=== PATIENT | male | born 1970 | race Caucasian/White ===

== ENCOUNTER 2017-12-04 21:39 | Emergency (ER) | payer OTHER ==
[~2017-12-04] VITALS: Ht 188 cm; Wt 117.9 kg
--- OUTSIDE RECORDS SUMMARY | ~2017-12-04 | XMS | Encounter Summary ---
Demographics + + + | Address | [address] | | | [place] [address] | + + + | Home Phone | | + + + | Preferred Language | Unknown | + + + | Marital Status | | + + + | Nondenominational Affiliation | Unknown | + + + | Race | White | + + + | Ethnic Group | Not or | + + + Author + + + | Author | [facility] | + + + | Organization | [facility] | + + + | Address | Unknown | + + + | Phone | Unavailable | + + + Support + + + + + | Name | Relationship | Address | Phone | + + + + + | Toribio Taylor | ECON | | | | [address] | | [place] | | | | | [address] | | + + + + + Care Team Providers + +------+-------+ | Care Manager Search Engine Name | Role | Phone | + +------+-------+ | Donato Villegas MD | PCP | tel | + +------+-------+ Encounter Details +--------+ + + + + | Date | Type | Department | Care Team | Description | +--------+ + + + + | 09/15/ | Document-Sc | UNKNOWN DEPARTMENT | Unknown . | | | 2017 | anned | [address] [facility] | | | | | | [facility] | | | | | | [place], [place] | | | | | | [address] | | | +--------+ + + + + Social History + +-------+ +--------+------+ | Tobacco Use | Types | Packs/Day | Years | Date | | | | | Used | | + +-------+ +--------+------+ | Never Smoker | | | | | + +-------+ +--------+------+ + +---+---+---+ | Smokeless Tobacco: | | | | | Never Used | | | | + +---+---+---+ + + + | Sex Assigned at | Date Recorded | | | | + + + | Not on file | | + + + as of this encounter Plan of Treatment +--------+---------+ + + + | Date | Type | Specialty | Care Team | Description | +--------+---------+ + + + | 03/15/ | Office | Neurology | Per Harrison, | | | 2017 | Visit | | [address] | | | | | | [address] | | | | | | [place] | | | | | | [address] | | | | | | [phone] | | | | | | | | +--------+---------+ + + + as of this encounter Results ORDERS OTHER (09/15/2017)in this encounter Visit Diagnoses Not on filein this encounter"
--- OUTSIDE RECORDS SUMMARY | ~2017-12-04 | XMS | Clinical Summary ---
Demographics + + + | Address | [address] | | | [place] [address] | + + + | Home Phone | | + + + | Preferred Language | Unknown | + + + | Marital Status | | + + + | Yarsanism Affiliation | Unknown | + + + | Race | White | + + + | Ethnic Group | Not or | + + + Author + + + | Author | [facility] | + + + | Organization | [facility] | + + + | Address | Unknown | + + + | Phone | Unavailable | + + + Support + + + + + | Name | Relationship | Address | Phone | + + + + + | Toribio Taylor | ECON | [address] | | | [address] | | [place] | | | | | [address] | | + + + + + Care Team Providers + +------+-------+ | Care Logistics Tech Name | Role | Phone | + +------+-------+ | Donato Villegas MD | PP | tel | + +------+-------+ Source Comments PO is fully live on both [facility] and [facility] InPatient.[facility] Allergies No Known Allergies Current Medications + + +--------+---------+------+------+-------+ | Prescription | Sig. | Disp. | Refills | Star | End | Statu | | | | | | t | Date | s | | | | | | Date | | | + + +--------+---------+------+------+-------+ | ERGOCALCIFEROL, | Take 50,000 Units by | | | | | Activ | | VITAMIN D2, (VITAMIN | mouth every seven | | | | | e | | D ORAL) | days. | | | | | | + + +--------+---------+------+------+-------+ | Pramipexole | Take 2 tablets by | 60 | 2 | 04/ | | Activ | | (MIRAPEX ER) 0.375 | mouth once daily. | tablet | | 07/05 | | e | | mg oral tablet | Indications: | | | 17 | | | | extended release 24 | Idiopathic | | | | | | | hrIndications: | Parkinsonism | | | | | | | Idiopathic | | | | | | | | Parkinsonism | | | | | | | + + +--------+---------+------+------+-------+ | metoprolol | Take 25 mg by mouth | | | | | Activ | | succinate 25 mg oral | once daily. | | | | | e | | tablet extended | | | | | | | | release 24 hr | | | | | | | + + +--------+---------+------+------+-------+ | entacapone 200 mg | Take 1 tablet by | 90 | 11 | 10/ | | Activ | | oral | mouth three times | tablet | | 02/02 | | e | | tabletIndications: | daily. Always | | | 17 | | | | Idiopathic | administer in | | | | | | | Parkinsonism | association with | | | | | | | | levodopa/carbidopa | | | | | | | | (SINEMET). | | | | | | | | Indications: | | | | | | | | Idiopathic | | | | | | | | Parkinsonism | | | | | | + + +--------+---------+------+------+-------+ | carbidopa-levodopa | Take 2 tablets by | 540 | 3 | 10/2 | | Activ | | (SINEMET) 25-100 mg | mouth three times | tablet | | 3/20 | | e | | oral tablet | daily. | | | 17 | | | + + +--------+---------+------+------+-------+ | rasagiline 1 mg | Take 1 tablet by | 90 | 3 | 10/2 | | Activ | | oral | mouth once daily. | tablet | | 3/20 | | e | | tabletIndications: | Indications: | | | 17 | | | | Idiopathic | Idiopathic | | | | | | | Parkinsonism | Parkinsonism | | | | | | + + +--------+---------+------+------+-------+ | trihexyphenidyl 2 | Take 1 tablet by | 90 | 11 | 11/2 | | Activ | | mg oral | mouth three times | tablet | | 1/20 | | e | | tabletIndications: | daily Indications: | | | 17 | | | | Idiopathic | Idiopathic | | | | | | | Parkinsonism | Parkinsonism | | | | | | + + +--------+---------+------+------+-------+ Active Problems + + + | Problem | Noted Date | + + + | Parkinson's disease (HCC) | 07/03/2014 | + + + Encounters +--------+ + + + + | Date | Type | Specialty | Care Team | Description | +--------+ + + + + | 10/06/ | Telephone | | Per Harrison, | Refill Request | | 2017 | | | MD | (Trihexyphenidyl 2MG | | | | | | tab) | +--------+ + + + + | 09/15/ | Document-Sc | | Ventura, Javier | | | 2016 | anned | | | | +--------+ + + + + | 09/15/ | Document-Sc | | Unknown | | | 2016 | anned | | | | +--------+ + + + + | 09/07/ | Office | | Per Harrison, | Parkinson's disease | | 2016 | Visit | | MD | (HCC) (Primary Dx) | +--------+ + + + + from Last 3 Months Social History + +-------+ +--------+------+ | Tobacco [...] on file | | + + + Last Filed Vital Signs + + + + | Vital Sign | Reading | Time Taken | + + + + | Blood Pressure | 123/81 | 09/07/2017 2:34 PM PDT | + + + + | Pulse | 92 | 09/07/2017 2:34 PM PDT | + + + + | Temperature | - | - | + + + + | Respiratory Rate | - | - | + + + + | Oxygen Saturation | - | - | + + + + | Inhaled Oxygen | - | - | | Concentration | | | + + + + | Weight | 127.9 kg (282 lb) | 09/07/2017 2:33 PM PDT | + + + + | Height | 182.9 cm (6') | 03/03/2017 12:59 PM PDT | + + + + | Body Mass Index | 38.25 | 09/07/2017 2:33 PM PDT | + + + + Plan of Treatment +--------+---------+ + + + | Date | Type | Specialty | Care Team | Description | +--------+---------+ + + + | 03/15/ | Office | | Per Harrison, | | | 2018 | Visit | | [address] | | | | | | [address] | | | | | | [place], [place] | | | | | | [address] | | | | | | [phone] | | | | | | | | +--------+---------+ + + + + + + + + | Health Maintenance | Due Date | Last Done | Comments | + + + + + | INFLUENZA VACCINE | | | | | (FLU SHOT) | 7 | | | + + + + + Results ORDERS OTHER (09/15/2017)Only the most recent of 2 results within the time period is includ ed.from Last 3 Months"
--- OUTSIDE RECORDS SUMMARY | ~2017-12-04 | XMS | Encounter Summary ---
Demographics + + + | Address | [address] | | | [place] [address] | + + + | Home Phone | | + + + | Preferred Language | Unknown | + + + | Marital Status | | + + + | Zoroastrian Affiliation | Unknown | + + + | Race | White | + + + | Ethnic Group | Not or | + + + Author + + + | Author | [facility] | + + + | Organization | [facility] | + + + | Address | Unknown | + + + | Phone | Unavailable | + + + Support + + + + + | Name | Relationship | Address | Phone | + + + + + | Toribio Taylor | ECON | | | | [address] | | [place] | | | | | [address] | | + + + + + Care Team Providers + +------+-------+ | Care Heating Worker Name | Role | Phone | + +------+-------+ | Donato Villegas MD | PCP | tel | + +------+-------+ Reason for Visit Office Visit - E/M Services (Routine) +--------+--------+ + + + + | Status | Reason | Specialty | Diagnoses / | Referred By | Referred To | | | | | Procedures | Contact | Contact | +--------+--------+ + + + + | Closed | | Neurology | Procedures | [facility] | [facility] | | | | | [place] EST | Epic Dept | Disorder Chh | | | | | PATIENT | | [address] | | | | [address] | | [address] | | | | | | | Mail Code: | | | | | | | [facility] | | | | | | | for Health | | | | | | | and Healing, | | | | | | | 8th floor | | | | | | | [place], [place] | | | | | | | [address] | | | | | | | Phone: | | | | | | | [phone] | | | | | | | Fax: | | | | | | | [phone] | +--------+--------+ + + + + Encounter Details +--------+---------+ + + + | Date | Type | Department | Care Team | Description | +--------+---------+ + + + | 09/07/ | Office | Neurology at | Per Harrison, | Parkinson's disease | | 2017 | Visit | [facility] & | [address] | ([facility]) (Primary Dx) | | | | Healing [address] | [address] | | | | | [facility] Mail Code: | [place], [place] | | | | | [address] | [address] | | | | | Health and Healing, | [phone] | | | | | 8th floor [place], | | | | | | [place] [address] | | | | | | [phone] | | | +--------+---------+ + + + Social History + +-------+ [...] + + + as of this encounter Last Filed Vital Signs + + + [...] + + + + | Height | - | - | + + + + | Body Mass Index | 38.25 | 09/07/2017 2:33 PM PDT | + + + + in this encounter Instructions Patient Instructions - Per Harrison MD - 09/07/2017 2:40 PM PDT1) for depression - 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 Could also consider psychotherapy 2) Add entacapone - to the carbidopa/levodopain this encounter Progress Notes Per Harrison MD - 09/07/2017 2:40 PM PDTFormatting of this note may be different from the original. HPI: Toribio Tyalor is a 46 y.o. male here for follow up for Parkinson's Disease. H is summer was doing well. He has been having more trouble since school started. He has plant ar fasciaitis. It is getting better over time. It is slowly getting better. This is making i t harder to exercise. More depression since school started. He is still not on Mirapex for now. He was having more addictive behaviors. His PD is worse since starting. His mood is worse off the Mirapex. He is still having some managable gaps w ith the C/L. Doesn't always need to take the last dose. Pertinent neurological history: He developed tremor in 2006 which was felt to be ET. Eventually developed parkinsonian feat ures and was dx with PD in 2013 and started on Stalevo. He was referred to [facility], and it was decided to go off the entacapone due to the trials that showed it potentially increased dysk inesias if started early. Artane was added as he had primarily tremor complaints. He had bee n tried on Mirapex, but had impulsive behaviors. He had sleep referral and started on CPAP in 2015. Current Outpatient Prescriptions Medication Sig carbidopa-levodopa (SINEMET) 25-100 mg oral tablet Take 2 tablets by mouth three times daily. ERGOCALCIFEROL, VITAMIN D2, (VITAMIN D ORAL) Take 50,000 Units by mouth every seven day s. metoprolol succinate 25 mg oral tablet extended release 24 hr Take 25 mg by mouth once daily. Pramipexole (MIRAPEX ER) 0.375 mg oral tablet extended release 24 hr Take 2 tablets by mouth once daily. Indications: Idiopathic Parkinsonism rasagiline 1 mg oral tablet Take 1 tablet by mouth once daily. Indications: Idiopathic Parkinsonism trihexyphenidyl 2 mg oral tablet Take 1 tablet by mouth three times daily. No current facility-administered medications for this visit. PE: Blood pressure 123/81, pulse 92, weight 127.9 kg (282 lb). He had mild to moderate bradykinesia left greater than right with decrementally reduced amp litude and interupted frequency to finger taps, MANUELA of the hands, and pronation-supination. There was mild increase in tone left greater than right. He had mild, slow resting tremor on the left hand which was intermittent. There was a mild postural / intention component to t he tremor. He was able to arise from chair without difficulty. Gait testing revealed mildly stooped posture with decreased arm swing on the left. Imp: 1) Parkinson's Disease Gage still meets criteria for idiopathic Parkinson's Disease. This has been complicated by motor fluctuations and depression. He is having more progression of his symptoms with some motor fluctuations. Will re-add corby k entacapone to try to keep him on for a longer time period during the day.. Will stay off M irapex due to impulsive behaviors. He does feel his mood is down more lately. I do think a t herapeutic intervention would be in order. Will consider psychotherapy or antidepressants (c onsider Effexor, Wellbutrin, or Zoloft). He is not excited about either, so did not want to start either at present. Plan: 1) Continue with C/L and add entacapone 200 mg with each dose 2) Return to clinic in 6-9 months I spent 25 minutes with the patient. Greater than 50% of the time was spent counseling the patient regarding disease progression and treatment options. in this encounter Plan of Treatment +--------+---------+ + + + | Date | Type | Specialty | Care Team | Description | +--------+---------+ + + + | 03/15/ | Office | Neurology | Per Harrison, | | | 2017 | Visit | | [address] | | | | | | [facility] | | | | | | [place], [place] | | | | | | [address] | | | | | | [phone] | | | | | | | | +--------+---------+ + + + as of this encounter Visit Diagnoses + + | Diagnosis | + + | Parkinson's disease (HCC) - Primary | + + | Paralysis agitans | + +"
--- OUTSIDE RECORDS SUMMARY | ~2017-12-04 | XMS | Clinical Summary ---
Demographics + + + | Address | [address] | | | [place] [address] | + + + | Home Phone | | + + + | Preferred Language | Unknown | + + + | Marital Status | | + + + | Adventism Affiliation | Unknown | + + + | Race | White | + + + | Ethnic Group | Not or | + + + Author + + + | Author | [facility] | + + + | Organization | [facility] | + + + | Address | Unknown | + + + | Phone | Unavailable | + + + Support + + + + + | Name | Relationship | Address | Phone | + + + + + | Toribio Taylor | ECON | [address] | | | [address] | | [place] | | | | | [address] | | + + + + + Care Team Providers + +------+-------+ | Care Lead Military Analyst Name | Role | Phone | + +------+-------+ | Donato Villegas MD | PP | tel | + +------+-------+ Source Comments PO is fully live on both [facility] and [facility] InPatient.[facility] Allergies No Known Allergies Current Medications + [...] [address] | | | | | | [place], [place] | | | | | | [address] | | | | | | [phone] | | | | | | | [...]
--- OUTSIDE RECORDS SUMMARY | ~2017-12-04 | XMS | Encounter Summary ---
Demographics + + + | Address | [address] | | | [place] [address] | + + + | Home Phone | | + + + | Preferred Language | Unknown | + + + | Marital Status | | + + + | Voodoo Affiliation | Unknown | + + + | Race | White | + + + | Ethnic Group | Not or | + + + Author + + + | Author | [facility] | + + + | Organization | [facility] | + + + | Address | Unknown | + + + | Phone | Unavailable | + + + Support + + + + + | Name | Relationship | Address | Phone | + + + + + | Toribio Taylor | ECON | | | | [place] | | [place] | | | | | [address] | | + + + + + Care Team Providers + +------+-------+ | Care Director Translational Name | Role | Phone | + +------+-------+ | Donato Villegas MD | PCP | tel | + +------+-------+ Reason for Visit + + + | Reason | Comments | + + + | Refill Request | Trihexyphenidyl 2MG tab | + + + Encounter Details +--------+ + + + + | Date | Type | Department | Care Team | Description | +--------+ + + + + | 10/06/ | Telephone | Neurology at | Per Harrison, | Refill Request | | 2017 | | [facility] & | [address] | (Trihexyphenidyl 2MG | | | | Healing [address] | tab) | | | | [facility] Mail Code: | [place], [place] | | | | | [facility] | [address] | | | | | Health and Healing, | [phone] | | | | | 8th floor [place], | | | | | | [place] [address] | | | | | | [phone] | | | +--------+ + + + [...] [address] | | | | | | [place], [place] | | | | | | [address] | | | | | | [phone] | | | | | | | | +--------+---------+ + + + as of this encounter Visit Diagnoses Not on filein this encounter"
--- OUTSIDE RECORDS SUMMARY | ~2017-12-04 | XMS | Encounter Summary ---
Demographics + + + | Address | [address] | | | [place] [address] | + + + | Home Phone | | + + + | Preferred Language | Unknown | + + + | Marital Status | | + + + | Scientologist Affiliation | Unknown | + + + | Race | White | + + + | Ethnic Group | Not or | + + + Author + + + | Author | [facility] | + + + | Organization | [facility] | + + + | Address | Unknown | + + + | Phone | Unavailable | + + + Support + + + + + | Name | Relationship | Address | Phone | + + + + + | Toribio Taylor | ECON | | | | [place] | | [place] | | | | | [address] | | + + + + + Care Team Providers + +------+-------+ | Care Pre Kindergarten Teacher Name | Role | Phone | + +------+-------+ | Donato Villegas MD | PCP | tel | + +------+-------+ Encounter Details +--------+ + + + + | Date | Type | Department | Care Team | Description | +--------+ + + + + | 09/15/ | Document-Sc | Health Information | Other, Faculty | | | 2017 | anned | Services [address] | [phone] | | | | | [address] | | | | | | Road Mailcode: | | | | | | [address] | | | | | | [facility] | | | | | | Telephone, [place] | | | | | | [address] | | | | | | [phone] | | | +--------+ + + + [...] [address] | | | | | | [place] | | | | | | [address] | | | | | | [phone] | | | | | | | | +--------+---------+ + + + as of this encounter Results ORDERS OTHER (09/15/2017)in this encounter Visit Diagnoses Not on filein this encounter"
--- OUTSIDE RECORDS SUMMARY | ~2017-12-04 | XMS | Encounter Summary ---
Demographics + + + | Address | [address] | | | [place] [address] | + + + | Home Phone | | + + + | Preferred Language | Unknown | + + + | Marital Status | | + + + | Christian Affiliation | Unknown | + + + | Race | White | + + + | Ethnic Group | Not or | + + + Author + + + | Author | [facility] | + + + | Organization | [facility] | + + + | Address | Unknown | + + + | Phone | Unavailable | + + + Support + + + + + | Name | Relationship | Address | Phone | + + + + + | Toribio Taylor | ECON | | | | [address] | | [place] | | | | | [address] | | + + + + + Care Team Providers + +------+-------+ | Care Home Security Alarm Installer Name | Role | Phone | + +------+-------+ | Donato Villegas MD | PCP | tel | + +------+-------+ Encounter Details +--------+ + + + + | Date | Type | Department | Care Team | Description | +--------+ + + + + | 09/15/ | Document-Sc | UNKNOWN DEPARTMENT | Unknown . | | | 2017 | anned | [address] [facility] | | | | | | [facility] | | | | | | [place], [place] | | | | | | [address] | | | +--------+ + + + [...] [place] | | | | | | [address] | | | | | | [phone] | | | | | | | | +--------+---------+ + + + as of this encounter Results ORDERS OTHER (09/15/2017)in this encounter Visit Diagnoses Not on filein this encounter"
--- OUTSIDE RECORDS SUMMARY | ~2017-12-04 | XMS | Encounter Summary ---
Demographics + + + | Address | [address] | | | [place] [address] | + + + | Home Phone | | + + + | Preferred Language | Unknown | + + + | Marital Status | | + + + | Episcopal Affiliation | Unknown | + + + | Race | White | + + + | Ethnic Group | Not or | + + + Author + + + | Author | [facility] | + + + | Organization | [facility] | + + + | Address | Unknown | + + + | Phone | Unavailable | + + + Support + + + + + | Name | Relationship | Address | Phone | + + + + + | Toribio Taylor | ECON | | | | [address] | | [place] | | | | | [address] | | + + + + + Care Team Providers + +------+-------+ | Care Senior Qa Engineer Name | Role | Phone | + [...] [facility] | | | | | [place] EST | Epic Dept | Disorder Ch[facility] [...] | | | | | | | [place], [place] | | | | | | | [address] | | | | | | | Phone: | | | | | | | [phone] | | | | | | | Fax: | | | | | | | [phone] | +--------+--------+ + + + + Encounter Details +--------+---------+ + + + | Date | Type | Department | Care Team | Description | +--------+---------+ + + + | 09/07/ | Office | Neurology at | Per Harrison, | Parkinson's disease | | 2017 | Visit | [facility] & | [address] | ([facility]) (Primary Dx) | | | | Healing [address] | [address] | | | | | [facility] Mail Code: | [place], [place] | | | | | [address] | [address] | | | | | Health and Healing, | [phone] | | | | | 8th floor [place], | | | | | | [place] [address] | | | | | | [phone] | | | +--------+---------+ + + + [...] 2:40 PM PDT1) 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 Could also consider psychotherapy 2) Add entacapone - to the carbidopa/levodopain this encounter Progress Notes Per Harrison MD - 09/07/2017 2:40 PM PDTFormatting of this note may be different from the original. HPI: Toribio Taylor is a 46 y.o. male here for [...] started on Stalevo. He was referred to [facility], and it was decided to go off [...] | | 2017 | Visit | | [address] | | | | | | [facility] | | | | | | [place], [place] | | | | | | [address] | | | | | | [phone] | | | | | | | | +--------+---------+ + + + as of this encounter Visit Diagnoses + + | Diagnosis | + + | Parkinson's disease (HCC) - Primary | + + | Paralysis agitans | + +"
--- OUTSIDE RECORDS SUMMARY | ~2017-12-04 | XMS | Encounter Summary ---
Demographics + + + | Address | [address] | | | [place] [address] | + + + | Home Phone | | + + + | Preferred Language | Unknown | + + + | Marital Status | | + + + | Tenriism Affiliation | Unknown | + + + | Race | White | + + + | Ethnic Group | Not or | + + + Author + + + | Author | [facility] | + + + | Organization | [facility] | + + + | Address | Unknown | + + + | Phone | Unavailable | + + + Support + + + + + | Name | Relationship | Address | Phone | + + + + + | Toribio Taylor | ECON | | | | [address] | | [place] | | | | | [address] | | + + + + + Care Team Providers + +------+-------+ | Care Rug Repairer Name | Role | Phone | + [...] anned | Services [address] | [phone] | | | | | [address] | | | | | | Road Mailcode: | | | | | | [address] | | | | | | [facility] | | | | | | [place], [place] | | | | | | [address] | | | | | | [phone] | | | +--------+ + + + [...] [address] | | | | | | [place] | | | | | | [address] | | | | | | [phone] | | | | | | | | +--------+---------+ + + + as of this encounter Results ORDERS OTHER (09/15/2017)in this encounter Visit Diagnoses Not on filein this encounter"
--- OUTSIDE RECORDS SUMMARY | ~2017-12-04 | XMS | Encounter Summary ---
Demographics + + + | Address | [address] | | | [place] [address] | + + + | Home Phone | | + + + | Preferred Language | Unknown | + + + | Marital Status | | + + + | Yarsanism Affiliation | Unknown | + + + | Race | White | + + + | Ethnic Group | Not or | + + + Author + + + | Author | [facility] | + + + | Organization | [facility] | + + + | Address | Unknown | + + + | Phone | Unavailable | + + + Support + + + + + | Name | Relationship | Address | Phone | + + + + + | Toribio Taylor | E[place] | | | | [place] | | [place] | | | | | [phone] | | + + + + + Care Team Providers + +------+-------+ | Care Grated Cheese Maker Name | Role | Phone | + [...] Refill Request | | 2017 | | [facility] & | [address] | (Trihexyphenidyl 2MG | | | | Healing [address] | tab) | | | | [facility] Mail Code: | [place], [place] | | | | | [facility] | [address] | | | | | [facility], | [phone] | | | | | 8th floor [place], | | | | | | [place] [address] | | | | | | [phone] | | | +--------+ + + + [...] [address] | | | | | | [place], [place] | | | | | | [address] | | | | | | [phone] | | | | | | | | +--------+---------+ + + + as of this encounter Visit Diagnoses Not on filein this encounter"
[2017-12-04] MEDS ORDERED: TRIHEXYPHENIDYL2 MG PO (22:20)
[2017-12-04] MEDS ORDERED: SINEMET 25-2501 EACH PO (22:20)
[2017-12-04] MEDS ORDERED: RASAGILINE MESYL1 MG PO (22:21)
[2017-12-04] MEDS ORDERED: ENTACAPONE200 MG PO (22:23)
[2017-12-04] MEDS ORDERED: VITAMIN D400 UNIT PO (22:23)
[2017-12-04] MEDS ORDERED: NORCO 5-325 TA1 EACH PO (22:53)
== END 2017-12-04 23:53 | disposition home or self-care (01) ==
LOC: ED 21:39
PROC: 0RSJXZZ Reposition Right Shoulder Joint, External Approach (ICD-10-PCS; principal; 2017-12-04)
DX: S43.014A Anterior dislocation of right humerus, initial encounter (principal); S43.034A Inferior dislocation of right humerus, initial encounter; G20 Parkinson's disease; Z98.890 Other specified postprocedural states; Z79.899 Other long term (current) drug therapy; W19.XXXA Unspecified fall, initial encounter; Y93.21 Activity, ice skating
CPT/HCPCS: 23650; 73030; 96374; 96375; 99284; J2270; J2405; J2704; J7030

== ENCOUNTER 2022-09-15 06:57 | Day surgery (SDC) | payer OTHER ==
[~2022-09-15] VITALS: Ht 188 cm; Wt 113.6 kg
[~2022-09-15 06:57] MED LIST: ENTACAPONE200 MG PO; NORCO 5-325 TA1 EACH PO; RASAGILINE MESYL1 MG PO; SINEMET 25-2501 EACH PO; TRIHEXYPHENIDYL2 MG PO; VITAMIN D400 UNIT PO
--- NOTE | 2022-09-15 12:06 | NUR ---
09/15/22 1206 Paty Fonseca 1202 PATIENT ARRIVES TO PACU AWAKE OFF/ON, BUT VERY DROWSY. RESP EVEN AND UNLABORED, MASK AT 10 LITERS, DECREASED TO 6LITERS.
--- NOTE | 2022-09-15 13:17 | NUR ---
STEADY ON FEET FOR TRANSFER TO . USED TO TRANSPORT PT TO BATHROOM WHERE PT VOIDS 100ML URINE MIXED WITH BLOOD. REPORTS MILD NAUSEA AFTER RETURNING TO BED BUT REFUSES OFFER OF PRN MEDICATION FOR PAIN AT THIS POINT.
--- NOTE | 2022-09-15 13:20 | NUR ---
REVIEWED DISCHARGE INSTRUCTIONS WITH PT AND SPOUSE AT BEDSIDE. QUESTIONS ANSWERED. RX GIVEN TO PT WITH COPY OF DC INSTRUCTIONS.
--- NOTE | 2022-09-15 13:57 | NUR ---
REPORTS MILD NAUSEA OFF AND ON. REFUSES OFFER OF PRN MEDICATION FOR NAUSEA AT THIS POINT.
--- NOTE | 2022-09-16 18:44 | OR ---
[facility] [address] [place], [place] [address] Signed DATE OF OPERATION: 09/15/2022 SURGEON: Mitzi Jj MD PREOPERATIVE DIAGNOSIS: A 10 mm left ureterovesical junction calculus, partially obstructing. POSTOPERATIVE DIAGNOSIS: A 10 mm left ureterovesical junction calculus, partially obstructing. NAMES OF PROCEDURES: 1. Diagnostic cystoscopy with left retrograde pyelogram. 2. Left semi-rigid ureteroscopy with laser lithotripsy and basket extraction of stone fragments. 3. Insertion of a 5 x 28 cm double-J ureteral stent into the left ureter. ANESTHESIA: General. ESTIMATED BLOOD LOSS: None. COMPLICATIONS: None. SPECIMENS: Stone fragments of left ureteral calculus sent to the lab for stone analysis. DRAINS: A 5 x 28 cm double-J ureteral stent inserted into the left collecting system. INDICATIONS FOR PROCEDURE: Mr. Wise is a very pleasant 51-year-old gentleman, who recently presented to my clinic with a history of intermittent left-sided flank pain. He was finally seen in the emergency department and underwent a CT scan, which revealed a 10 mm left ureterovesical junction calculus with no other significant stones in the left collecting system. After discussion of the risks and benefits of ureteroscopy, the patient elected to undergo ureteroscopic extraction of his left distal ureteral calculus. OPERATIVE FINDINGS: Electronically Signed By: MITZI JJ MD 09/16/22 1844 PATIENT NAME: FISH WISE OPERATIVE REPORT DATE OF : 72 REPORT #: [id number] PHYSICIAN: MITZI JJ MD PCP: DAVIE SHAH MD REPORT IS CONFIDENTIAL AND NOT TO BE RELEASED WITHOUT AUTHORIZATION [facility] [address] [place], [place] [address] Signed 1. On cystoscopy, there was no evidence of any suspicious masses, lesions, or stones. Bilateral ureteral orifices are noted to be in their normal anatomic location and effluxing clear urine. Ureteroscopy revealed no significant prostatic obstruction. 2. Left retrograde pyelogram revealed an obvious filling defect in the transmural portion of the left distal ureter, around 1 cm just above the left ureteral orifice. This filling defect is consistent with his known 10 mm left ureterovesical junction calculus. 3. Using semi-rigid ureteroscopy, the stone was visualized and was fragmented using a holmium laser at 8 and 1 settings using a 270 micron fiber. The stone fragmented with some difficulty, but ultimately 100% of the stone was successfully extracted from the left ureterovesical junction. 4. At the end of the procedure, a 5 x 28 cm double-J ureteral stent was inserted into the left collecting system under direct visualization without difficulty. DESCRIPTION OF PROCEDURE: After informed consent obtained, the patient was taken back to the operating room, who was transferred from the [facility] to the operating room table, where general anesthesia was induced. He was placed in the dorsal lithotomy position and genitalia prepped and draped in standard sterile fashion. Using a 30-degree lens on a 22.5-Bahraini introducer, rigid cystoscope was inserted through his urethra and into his bladder under direct visualization. Panendoscopic views of bladder then obtained. Please see above findings. A left retrograde pyelogram was then performed using a cone-tipped catheter. Please see above findings. I then advanced a semi-rigid ureteroscope through the urethra into the patient's bladder. I was able to locate the left ureteral orifice and advanced into the distal left ureter under direct visualization. Please see above findings. The stone appeared to be jammed within the distal left ureter, however, it did not appear to be impacted into the wall of the ureter. The stone was fragmented using a holmium laser at 8 and 1 settings using a 270 micron fiber. 100% of the stone burden was successfully extracted today. At the end of the stone extracted, I repeated a left retrograde pyelogram, which revealed no evidence of any remaining stone fragments. I passed a 0.035 Sensor wire through the ureteroscope and up into the left collecting system. I removed the ureteroscope, leaving the Sensor wire behind. Over the wire, I passed a 5 x 28 cm double-J ureteral stent to the left collecting system under direct visualization without difficulty. Once I pulled the wire, an adequate proximal coil was noted within the left renal pelvis. An adequate distal coil was noted on cystoscopy. I then used the cystoscope to extract all the ureteral stone fragments from the patient's bladder. The fragments were placed in a specimen cup to be sent to Pathology for evaluation. A ureteral stent was placed with a string attached. The string was secured to the patient's phallus at the end of the procedure. The procedure was then terminated. The patient tolerated the procedure well without any complication. He will now be transferred to the postanesthesia care unit in stable condition. Electronically Signed By: MITZI JJ MD 09/16/22 1844 PATIENT NAME: FISH WISE OPERATIVE REPORT DATE OF : 72 REPORT #: [id number] PHYSICIAN: MITZI JJ MD PCP: DAVIE SHAH MD REPORT IS CONFIDENTIAL AND NOT TO BE RELEASED WITHOUT AUTHORIZATION [address] [address] Signed DISPOSITION: I discussed the details of today's procedure with the patient's and answered all of her questions. He has been asked to remove his indwelling ureteral stent using the string attached on September 19. He will be sent home today with Cipro 500 mg one tab p.o. b.i.d. for a total of 7 days along with oxycodone 5 mg one tablet p.o. q.4-6 hours p.r.n. pain, dispense #30. He will return to clinic in six weeks or so for his 1st postoperative evaluation. MD JANIYA Olmstead/EVER /[id number] Copies: ~ Electronically Signed By: MITZI JJ MD 09/16/22 1844 PATIENT NAME: FISH WISE OPERATIVE REPORT DATE OF : 72 REPORT #: [id number] PHYSICIAN: MITZI JJ MD PCP: DAVIE SHAH MD REPORT IS CONFIDENTIAL AND NOT TO BE RELEASED WITHOUT AUTHORIZATION
== END 2022-09-15 14:04 | disposition home or self-care (01) ==
LOC: DS 06:57
PROVIDERS: ATTEND Urology
PROC: 0TC78ZZ Extirpation of Matter from Left Ureter, Via Natural or Artificial Opening Endoscopic (ICD-10-PCS; principal; 2022-09-15 09:00)
PROC: 0T778DZ Dilation of Left Ureter with Intraluminal Device, Via Natural or Artificial Opening Endoscopic (ICD-10-PCS; 2022-09-15 09:00)
DX: N20.1 Calculus of ureter (principal); G20 Parkinson's disease; I10 Essential (primary) hypertension; G47.33 Obstructive sleep apnea (adult) (pediatric); E55.9 Vitamin D deficiency, unspecified; Z87.442 Personal history of urinary calculi; Z68.33 Body mass index [BMI] 33.0-33.9, adult
CPT/HCPCS: 74420; 82365; C1769; C2617; J0690; J1100; J1885; J2250; J2405; J2704; J2765; J3010; J7121; Q9967

== ENCOUNTER 2023-10-30 08:26 | Day surgery (SDC) | payer OTHER ==
[~2023-10-30] VITALS: Ht 188 cm; Wt 118.2 kg
[2023-10-30 08:43] VITALS: BP 120/91
[2023-10-30] MEDS ORDERED: RYTARY ER 36.21 EACH PO (08:46)
--- NOTE | 2023-10-30 10:22 | NUR ---
10/30/23 Lizzy2 Sunni Patiño OXYGEN SATURATION 99% ON 3L VIA NC. OXYGEN IS REMOVED.
[2023-10-30 10:29] VITALS: BP 130/91
--- NOTE | 2023-10-30 16:28 | OR ---
[facility] [address] [place], [place] [address] Signed DATE OF OPERATION: 10/30/2023 SURGEON: Veronica Garcia MD PREOPERATIVE DIAGNOSIS: Colon screening. POSTOPERATIVE DIAGNOSES: Polyps x2 and mild proctitis. PROCEDURE: Total colonoscopy to cecum with cold morcellation polypectomy x2. ANESTHESIA: Intravenous sedation; fentanyl 100 mcg, Versed 6 mg. INDICATION: This 52-year-old white man is a patient Dr. Davie Villegas. He is referred for screening colonoscopy. He has no symptoms of bleeding, diarrhea or constipation. No family history of colon cancer. He does have underlying Parkinson's disease, which is moderately severe. He understands the risk of screening colonoscopy including but not limited to bleeding, infection, and perforation and wished to proceed. FINDINGS: The prep was good. Complete colonoscopy was undertaken to the cecum. There was a small polyp of cecum and a very small polyp of the left colon too. Retroflexed view showed mild distal proctitis. Biopsy was obtained there as well. There were no other findings of concern. DESCRIPTION OF PROCEDURE: The patient was brought to the endoscopy suite and placed in lateral decubitus position, given intravenous sedation to the point of slurred speech and nystagmus with full cardiopulmonary monitoring. Digital rectal examination was normal. An Olympus video colonoscope was passed in the rectum and manipulated throughout the colon ultimately intubating the cecum itself. The prep was good. Irrigation was undertaken revealing a small polyp of the cecum, this was adenomatous almost certainly. This was excised with cold morcellation technique completely. Scope was withdrawn and a very small polyp possibly hyperplastic was noted at the left colon, it too was excised with cold morcellation technique. Further withdrawal showed no other abnormality. Upon Electronically Signed By: VERONICA GARCIA MD 10/30/23 1628 PATIENT NAME: FISH WISE OPERATIVE REPORT DATE OF : 72 REPORT #: [id number] PHYSICIAN: VERONICA GARCIA MD PCP: DAVIE VILLEGAS MD REPORT IS CONFIDENTIAL AND NOT TO BE RELEASED WITHOUT AUTHORIZATION [facility] [address] [place], [place] [address] Signed retroflexed view, there was mild distal proctitis and biopsies were obtained, though clinical significance is unlikely. The scope was removed and the patient was taken to the recovery room in good condition. CONCLUDING DIAGNOSES: Polyps x2 and mild proctitis. PLAN: Recommend repeat colonoscopy in three years, sooner if symptoms should occur. He will return to the ongoing care of Dr. Villegas. MD MARIYA Durbin/MODL /[id number] cc: Davie Villegas MD Copies: DAVIE VILLEGAS MD ~ Electronically Signed By: VERONICA GARCIA MD 10/30/23 1628 PATIENT NAME: FISH WISE OPERATIVE REPORT DATE OF : 72 REPORT #: [id number] PHYSICIAN: VERONICA GARCIA MD PCP: DAVIE VILLEGAS MD REPORT IS CONFIDENTIAL AND NOT TO BE RELEASED WITHOUT AUTHORIZATION
== END 2023-10-30 10:45 | disposition home or self-care (01) ==
LOC: DS 08:26 → OPS 08:26 → DS 08:30 → OPS 09:30
PROVIDERS: ATTEND Surgery
PROC: 0DBM8ZZ Excision of Descending Colon, Via Natural or Artificial Opening Endoscopic (ICD-10-PCS; 2023-10-30)
PROC: 0DBH8ZZ Excision of Cecum, Via Natural or Artificial Opening Endoscopic (ICD-10-PCS; principal; 2023-10-30 09:30)
DX: Z12.11 Encounter for screening for malignant neoplasm of colon (principal); K62.89 Other specified diseases of anus and rectum; K51.40 Inflammatory polyps of colon without complications; K63.5 Polyp of colon; G20.B1 Parkinson's disease with dyskinesia, without mention of fluctuations; Z79.899 Other long term (current) drug therapy
CPT/HCPCS: 99153; G0500; J2250; J3010; J7121